=== PATIENT | female | born 1955 | race African-American/Black ===

== ENCOUNTER 2018-09-09 23:08 | Emergency (ER) | payer BC ==
[~2018-09-09 23:08] MED LIST: ALDACTONE25 MG PO; AMBIEN5 MG PO; AMLODIPINE10 MG PO; ASPIRIN EC81 MG PO; CARVEDILOL12.5 MG PO; CARVEDILOL6.25 MG PO; CIPRO250 MG PO; COREG6.25 MG PO; COZAAR25 MG PO; DIET PILL; ENTRESTO 49-511 TAB PO; FERROUS SULF325 M1 PO; FOLIC ACID1 MG PO; HYDRALAZINE25 MG PO; KLOR-CON 1010 ME1 PO; LASIX 40 MG TAB40 MG PO; LASIX 40 MG40 MG/TAB PO; LASIX40 MG PO; LISINOPRIL10 MG PO; LORTAB 5/3255 MG PO; LOSARTAN POT50 MG PO; LOSARTAN POTAS100 MG PO; LUNESTA1 MG PO; MACROBID100 MG PO; NO; NORVASC2.5 MG PO; OMEPRAZOLE40 MG PO; OXY1; PRILOSEC40 MG PO; VITAMIN D2 PO; VITAMIN D50000 UN1 PO; ZYRTEC10 MG PO
== END 2018-09-09 23:17 | disposition expired | DRG 298 ==
LOC: ED 23:08
DX: I46.9 Cardiac arrest, cause unspecified (principal)